=== PATIENT | female | born 1985 | race African-American/Black ===

== ENCOUNTER 2020-09-25 10:13 | Emergency (ER) | payer MEDICAID, OTHER ==
[~2020-09-25] VITALS: Ht 165.1 cm; Wt 145.1 kg
[2020-09-25 10:25] VITALS: BP 182/102
[2020-09-25] MEDS ORDERED: cloNIDine HCL 0.1 MG TAB PO ONE (10:30)
== END 2020-09-25 11:09 | disposition home or self-care (01) ==
LOC: ER 10:13
DX: T78.40XA Allergy, unspecified, initial encounter (principal); R22.0 Localized swelling, mass and lump, head; I16.0 Hypertensive urgency; I10 Essential (primary) hypertension; X58.XXXA Exposure to other specified factors, initial encounter

== ENCOUNTER 2021-04-24 03:51 | Emergency (ER) | payer MEDICAID ==
[~2021-04-24] VITALS: Ht 165.1 cm; Wt 172.4 kg
[2021-04-24] MEDS ORDERED: KETOROLAC TROMETH 30 MG/ML 1ML VIAL IV ONE (07:30)
[2021-04-24] MEDS ORDERED: SODIUM CHLORIDE 0.9% 1,000 ML IV ONE ×2 (07:30)
[2021-04-24 10:20] LABS: Urine Bacteria NONE SEEN /hpf (None Seen); Urine Blood Negative /uL (Negative); Urine Mucus FEW (None Seen); Urine Specific Gravity 1.027 (1.001-1.035); Urine WBC 2 /hpf (0 - 5)
[2021-04-24 10:23] LABS: Basophils # (auto) 0 10 ^3/uL (0-0.2); Basophils % (auto) 0.6 % (0.0-2.0); Eosinophils # (auto) 0.2 10 ^3/uL (0-0.8); Eosinophils % (auto) 2.4 % (0.0-7.0); Hematocrit 32.4 % (36.0-46.0); Lymphocytes # (auto) 2.3 10 ^3/uL (0.4-5.4); Mean Corpuscular Hemoglobin 22.6 pg (28.0-32.0); Mean Corpuscular Hgb Conc. 30.8 g/dL (32.0-36.0); Mean Corpuscular Volume 73.4 fL (80.0-100.0); Monocytes # (auto) 0.5 10 ^3/uL (0-1.3); Monocytes % (auto) 7.2 % (0.0-12.0); Neutrophils # (auto) 3.9 10 ^3/uL (1.6-8.6); Neutrophils % (auto) 56.8 % (37.0-80.0); Nucleated Red Blood Cells % 0.1 %; Red Blood Cells 4.42 10^6/uL (4.0-5.20); Red Cell Distribution Width 16.3 % (11.8-14.3); White Blood Cell 6.9 10^3/uL (4.4-10.8)
[2021-04-24 10:42] LABS: Albumin 3.1 g/dL (3.4-5.0); Potassium 3.1 mmol/L (3.5-5.1)
[2021-04-24 10:48] LABS: Bilirubin, Total 0.3 mg/dL (0.2-1.0); Calcium 8.7 mg/dL (8.5-10.1); Total Protein 7.6 g/dL (6.4-8.2)
[2021-04-24] MEDS ORDERED: POTASSIUM EFFERVESENT TAB 25 MEQ PO ONE (11:15)
[2021-04-24 11:51] VITALS: BP 152/89
== END 2021-04-24 11:53 | disposition home or self-care (01) ==
LOC: ER 03:51
DX: D25.9 Leiomyoma of uterus, unspecified (principal); E87.6 Hypokalemia; R11.0 Nausea; R42 Dizziness and giddiness; I10 Essential (primary) hypertension
CPT/HCPCS: 36415; 71045; 74176; 80053; 81001; 84702; 85025; 96361; 96374; 99285; J1885; J7030

== ENCOUNTER 2023-12-23 06:07 | Emergency (ER) | payer MEDICAID ==
[~2023-12-23] VITALS: Ht 165.1 cm; Wt 161.0 kg
[2023-12-23 06:45] VITALS: BP 152/86; PULSE 113; RESP 20; TEMP 99.1; O2SAT 96
[2023-12-23] MEDS: methylPREDNISolone SOD SUCC 125 MG/2 ML VL IM ONE (06:50)
[2023-12-23] MEDS ORDERED: PRED20TA2 PO (07:09)
== END 2023-12-23 07:25 | disposition home or self-care (01) ==
LOC: ER 06:07
DX: T78.40XA Allergy, unspecified, initial encounter (principal); R21 Rash and other nonspecific skin eruption; I10 Essential (primary) hypertension; X58.XXXA Exposure to other specified factors, initial encounter
CPT/HCPCS: 96372; 99283; J2919

== ENCOUNTER 2024-02-24 08:07 | Emergency (ER) | payer MEDICAID ==
[~2024-02-24] VITALS: Ht 165.1 cm; Wt 162.1 kg
[~2024-02-24 08:07] MED LIST: PRED20TA2 PO
[2024-02-24 08:57] VITALS: BP 164/93; PULSE 84; RESP 18; TEMP 98.7; O2SAT 96
[2024-02-24] MEDS ORDERED: IBUP-1455 PO (09:04)
[2024-02-24] MEDS: KETOROLAC TROMETH 60MG/2ML VIAL IM ONE (09:08)
== END 2024-02-24 09:13 | disposition home or self-care (01) ==
LOC: ER 08:07
DX: M79.672 Pain in left foot (principal); M79.602 Pain in left arm; I10 Essential (primary) hypertension; Z79.899 Other long term (current) drug therapy
CPT/HCPCS: 96372; 99283; J1885